=== PATIENT | female | born 1945 | race Caucasian/White ===

== ENCOUNTER → 2023-07-15 08:32 | Outpatient (REF) | payer OTHER, SELFPAY | LOC: HWRAD 08:32 | PROVIDERS: ATTENDING PHYSICIAN Specialist; FAMILY PHYSICIAN Nurse Practitioner | DX: M25.511 Pain in right shoulder (principal) | CPT/HCPCS: 73200 ==

== ENCOUNTER → 2023-07-15 08:54 | Outpatient (REF) | payer OTHER, SELFPAY | LOC: DHCBS HW 08:54 | PROVIDERS: ATTENDING PHYSICIAN Nuclear Medicine Nuclear Cardiology; FAMILY PHYSICIAN Internal Medicine | DX: I35.0 Nonrheumatic aortic (valve) stenosis (principal) | CPT/HCPCS: 93306 ==

== ENCOUNTER 2023-07-29 06:02 | Day surgery (SDC) | payer OTHER, SELFPAY ==
--- NOTE | 2023-06-25 10:49 | CM ---
Patient is scheduled for an elective R Reverse TSA on 07/29/23- she is a same day patient. Spoke with patient prior to surgery. Patient had a R Rev TSA (October 2022) and L TKR (March 2023) at . Reintroduced role of Orthopedic Navigator. Patient
reports that she lives with her in a multi story home. Currently she functions independently. She does not use any DME but has a rolling walker and cane. She has never had VN services. PCP is Alejandra Mcleod.
Discussed orthopedic program and post surgical plans. Patient will return home when directed by surgeon. Reviewed MD follow up and transition to outpatient therapy. Patient is in agreement with tentative plan and will have support from her
after surgery.
Patient has completed online education.
Plan: Orthopedic Navigator will be involved in the care of patient after surgery and will reassess discharge needs at that time.
[2023-07-07 12:11] VITALS: BMI 34.7
[2023-07-07 14:42] VITALS: BMI 34.7
[2023-07-07 14:50] LABS: Hematocrit 34.3 % (37.0-47.0); Hemoglobin 11.1 g/dL (12.0-16.0); Mean Corp Hgb Conc. 32.4 g/dL (33.0-37.0); Mean Corpuscular Hgb 32.6 pg (27.0-31.0); Mean Corpuscular Volume 100.6 fL (81.0-99.0); Mean Platelet Volume 10.8 fL (7.4-10.4); Platelet Count 214 10^3/uL (130-400); Red Blood Cell Count 3.41 10^6/uL (4.20-5.40); Red Cell Dist. Width 13.1 % (11.5-14.5); White Blood Cell Count 4.7 10^3/uL (4.8-10.8)
[2023-07-07 15:33] LABS: ALT (SGPT) 14 U/L (0-35); AST (SGOT) 25 U/L (14-36); Albumin 4.4 g/dl (3.5-5.0); Alkaline Phosphatase 79 U/L (38-126); Blood Urea Nitrogen 34 mg/dl (7-17); Calcium 9.8 mg/dl (8.4-10.2); Carbon Dioxide 26 mmol/L (22-30); Chloride 101 mmol/L (98-107); Estimated Creatinine Clearance 40 ml/min; Glucose 78 mg/dl (70-99); Potassium 4.9 mmol/L (3.5-5.1); Sodium 137 mmol/L (135-145); Total Bilirubin 0.3 mg/dl (0.2-1.3); Total Protein 6.8 g/dl (6.3-8.2); eGFR 46.62
[2023-07-08 09:31] LABS: Glycohemoglobin (HgbA1c) 5.4 % (4.0-5.6)
[2023-07-29] VITALS (9 sets, daily range): BP systolic 100–132; BP diastolic 46–63; BMI 34.7
[2023-07-29] MEDS: CELEBREX 200 MG PO (06:38)
[2023-07-29] MEDS: NORMOSOL-R 1000 IV (06:39)
[2023-07-29] MEDS: TYLENOL 1000 MG PO (06:39)
--- NOTE | 2023-07-29 11:06 | W.DS.TRANS ---
DC Summary - Fitting Room Checker
-
Discharge Instructions:
Discharge Diagnosis/Procedures R Reverse TSA Dr. Ward 07/29/23
Diet As tolerated
Driving Restrictions No driving
Instructions:
Stand-Alone Forms: SDS Total Shoulder D/C Inst.
Changes to Home Medications: Yes
Discharge Medications:
DC Medications w/original date entered in [employer]
lisinopril 10 mg tablet 10 mg PO DAILY Blood Pressure 12/30/18
mirabegron 50 mg tablet,extended release 24 hr (Myrbetriq) 50 mg PO DAILY Urinary Issue 12/30/18
multivitamin 1 ea PO DAILY Supplement 12/30/18
tolterodine 4 mg capsule,extended release 24 hr 4 mg PO DAILY Urinary Issue 12/30/18
Prevagen 10 mg PO DAILY Supplement 10/25/22
buspirone 7.5 mg tablet 7.5 mg PO DAILY Mental Health/Anxiety 10/25/22
escitalopram oxalate 20 mg tablet 20 mg PO DAILY Mental Health/Anxiety 10/25/22
rosuvastatin 20 mg tablet 20 mg PO DAILY High Cholesterol 10/25/22
Nutrafol 4 tab PO DAILY Supplement 03/07/23
biotin 10,000 mcg chewable tablet (Hair, Skin and Nails (biotin)) 10,000 mcg PO DAILY Supplement 03/07/23
acetaminophen 650 mg tablet,extended release 650 mg PO Q12H PRN Pain 07/02/23
mupirocin 2 % topical ointment 1 applic topical BID infection prevention #1 tube 07/07/23
Saccharomyces boulardii 250 mg capsule (Florastor) 250 mg PO BID #1 cap 07/29/23
aspirin 325 mg tablet 325 mg PO DAILY blood clot prevention #1 tab 07/29/23
docusate sodium 100 mg capsule (Colace) 100 mg PO BID stool softner #1 cap 07/29/23
doxycycline hyclate 100 mg capsule 100 mg PO BID infection prevention #10 caps 07/29/23
famotidine 20 mg tablet 20 mg PO HS GI prophylaxis #30 tabs 05/07/24
gabapentin 300 mg capsule 300 mg PO HS sleep/pain #10 caps 07/29/23
hydrocodone 5 mg-acetaminophen 325 mg tablet 1 tab PO Q6H PRN 1 tab moderate pain or 2 if severe #30 tabs 07/29/23
magnesium hydroxide 400 mg/5 mL oral suspension (Milk of Magnesia) 30 ml PO HS PRN Constipation #1 mL 07/29/23
prednisone 10 mg tablet 40 mg (4 x 10 mg) PO TAPER inflammation #20 tabs 07/29/23
sennosides 8.6 mg tablet (Senokot) 17.2 mg (2 x 8.6 mg) PO BID laxative #2 tabs 07/29/23
Home Medication Changes
doxycycline hyclate 100 mg capsule 100 mg PO BID infection prevention #10 caps 07/29/23�
famotidine 20 mg tablet 20 mg PO HS GI prophylaxis #30 tabs 07/29/23�
gabapentin 300 mg capsule 300 mg PO HS sleep/pain #10 caps 07/29/23�
hydrocodone 5 mg-acetaminophen 325 mg tablet 1 tab PO Q6H PRN 1 tab moderate pain or 2 if severe #30 tabs 07/29/23�
magnesium hydroxide 400 mg/5 mL oral suspension (Milk of Magnesia) 30 ml PO HS PRN Constipation #1 mL 07/29/23�
prednisone 10 mg tablet 40 mg (4 x 10 mg) PO TAPER inflammation #20 tabs 07/29/23�
Pending Results: No
[2023-07-29] MEDS: ANCEF 5 IV (11:40)
== END 2023-07-29 11:50 | disposition home or self-care (01) ==
LOC: SDS 06:02
PROVIDERS: ATTENDING PHYSICIAN Specialist; FAMILY PHYSICIAN Nurse Practitioner; OTHER PHYSICIAN Nuclear Medicine Nuclear Cardiology; OTHER PHYSICIAN Physician Assistant Medical
DX: M19.011 Primary osteoarthritis, right shoulder (principal)
CPT/HCPCS: 23472; C1776; 36415; 73020; 80053; 83036; 85027; 86850; 86900; 86901; 87070

== ENCOUNTER → 2023-11-04 13:21 | Outpatient (REF) | payer OTHER, SELFPAY | LOC: HWWDC 13:21 | PROVIDERS: ATTENDING PHYSICIAN Nurse Practitioner | DX: Z12.31 Encounter for screening mammogram for malignant neoplasm of breast (principal) | CPT/HCPCS: 77063; 77067 ==

== ENCOUNTER → 2024-09-30 08:18 | Outpatient (REF) | payer OTHER, SELFPAY | LOC: RAD 08:18 | PROVIDERS: ATTENDING PHYSICIAN Surgery; FAMILY PHYSICIAN Nurse Practitioner | DX: K43.2 Incisional hernia without obstruction or gangrene (principal) | CPT/HCPCS: 74177; Q9967 ==

== ENCOUNTER → 2024-11-05 08:47 | Outpatient (REF) | payer OTHER, SELFPAY | LOC: HWWDC 08:47 | PROVIDERS: ATTENDING PHYSICIAN Nurse Practitioner | DX: Z12.31 Encounter for screening mammogram for malignant neoplasm of breast (principal); Z87.39 Personal history of other diseases of the musculoskeletal system and connective tissue | CPT/HCPCS: 77063; 77067; 77080 ==

== ENCOUNTER 2025-01-21 12:39 | Inpatient (IN) | payer OTHER, SELFPAY ==
[2025-01-11 09:19] LABS: Hematocrit 36.0 % (37.0-47.0); Hemoglobin 11.7 g/dL (12.0-16.0); Mean Corp Hgb Conc. 32.5 g/dL (33.0-37.0); Mean Corpuscular Volume 102.6 fL (81.0-99.0); Platelet Count 224 10^3/uL (130-400); Red Cell Dist. Width 13.0 % (11.5-14.5)
[2025-01-11 10:21] LABS: Blood Urea Nitrogen 30 mg/dl (7-17); Calcium 9.4 mg/dl (8.4-10.2); Carbon Dioxide 31 mmol/L (22-30); Chloride 105 mmol/L (98-107); Glucose 88 mg/dl (70-99); Potassium 5.2 mmol/L (3.5-5.1); Sodium 138 mmol/L (135-145); eGFR 51.43
[2025-01-11 13:49] VITALS: BMI 34.4
[2025-01-21] VITALS (10 sets, daily range): BP systolic 118–141; BP diastolic 47–73; BMI 34.4
[2025-01-21] MEDS: TYLENOL 1000 MG PO (13:05)
[2025-01-21] MEDS: NORMOSOL-R/PLASMALYTE-A 1000 IV ×2 (13:21→18:04)
--- NOTE | 2025-01-21 16:15 | W.IMMPOSTOP ---
Surgical Immed Post Op Note
-
Primary Surgeon: Cher
Assisting Surgeon: EUGENIE Mejía
Pre-op Diagnosis: Ventral incisional hernia
Post-op Diagnosis: Ventral incisional hernia
Procedure Performed: Robotic ventral incisional hernia repair with mesh, THEO
Anesthesia Type: General
Specimen / Cultures: None
Estimated Blood Loss: 7 cc
Complications: None
Operative Findings:
1. Multiple midline defects along prior midline, largest measuring 6 cm, spanning 13 cm in total
2. Adhesiolysis of omental and colonic adhesions
3. Primary fascial closure with #1 PDS Stratafix, mild tension on closure
4. Ventralight ST 23 x 18 cm IPOM mesh repair
--- NOTE | 2025-01-21 18:21 | PTCARENOTE ---
Received patient from PACU via bed around 1800 in stable condition. Abdomen with abdominal binder in place. 4 lap sites to abdomen with surgical glue, no drainage. Midline incision with abd, CDI. Patient and family oriented to room. Call montes in
reach.
[2025-01-21] MEDS: DILAUDID 0.5 MG IV (19:33)
[2025-01-21] MEDS: BUSPAR 7.5 MG PO (20:30)
[2025-01-21] MEDS: TYLENOL 650 MG PO (20:31)
[2025-01-22] MEDS: TYLENOL PO (00:53)
[2025-01-22] MEDS: NORMOSOL-R/PLASMALYTE-A 1000 IV ×2 (03:54→12:36)
[2025-01-22] MEDS: TYLENOL 650 MG PO ×5 (04:35→19:53)
[2025-01-22 05:03] VITALS: BP 140/66
[2025-01-22 06:32] LABS: Hematocrit 32.2 % (37.0-47.0); Hemoglobin 10.9 g/dL (12.0-16.0); Mean Corp Hgb Conc. 33.9 g/dL (33.0-37.0); Mean Corpuscular Volume 100.0 fL (81.0-99.0); Platelet Count 174 10^3/uL (130-400); Red Cell Dist. Width 12.8 % (11.5-14.5)
[2025-01-22 06:55] LABS: Blood Urea Nitrogen 21 mg/dl (7-17); Calcium 8.2 mg/dl (8.4-10.2); Carbon Dioxide 28 mmol/L (22-30); Chloride 98 mmol/L (98-107); Estimated Creatinine Clearance 49 ml/min; Glucose 117 mg/dl (70-99); Potassium 5.1 mmol/L (3.5-5.1); Sodium 131 mmol/L (135-145); eGFR 57.66
[2025-01-22] MEDS: DETROL LA 4 MG PO (08:11)
[2025-01-22] MEDS: CRESTOR 20 MG PO (08:11)
[2025-01-22] MEDS: LEXAPRO 20 MG PO (08:11)
[2025-01-22] MEDS: BUSPAR 7.5 MG PO ×2 (08:12→19:53)
[2025-01-22] MEDS: PROTONIX IV 40 MG IV (08:12)
[2025-01-22] MEDS: NSS (PRESERVATIVE FREE) 10 ML IV (08:12)
[2025-01-22 08:46] VITALS: BP 124/62
[2025-01-22] MEDS: DILAUDID 0.5 MG IV (09:51)
[2025-01-22] MEDS: MIRALAX 17 GRAMS PO (09:52)
--- NOTE | 2025-01-22 10:50 | W.PN.GS2 ---
Today's Communication / Plan
-
-- Regular diet
-- IVF
-- Miralax
-- Home meds
-- OOB/ambulate
Assessment / Plan
-
Patient is a 79 yo F POD#1 s/p robotic ventral incisional hernia repair with mesh
AVSS
Labs notable for normal WBC, stable Hb (chronic anemia), hyponatremia, normal renal function
Expected postoperative issues with pain. Monitor dietary tolerance for possible ileus given size of mesh repair.
-- Regular diet
-- Pain control: Tylenol, Toradol, Oxycodone
-- IVF
-- Miralax
-- Home meds
-- OOB/ambulate
-- DVT: Lovenox
-- GI: PPI
Subjective Data
-
Date of Service: January 22, 2025
Ports abdominal soreness. Minimal ambulation. No nausea or vomiting. No flatus or BM. Afebrile.
Objective Data
-
Intake and Output
01/21/25 01/22/25 01/23/25
06:59 06:59 05:59
Intake Total 1300 / 1300
Output Total 1065 / 1065
Balance 235 / 235
Intake:
IV fluids (Total) 1300 / 1300
Normosol 100 / 100
Output:
Urine, Baker 1065 / 1065
Vital Signs
Temp Pulse Resp BP Pulse Ox
98 F 70 16 124/62 95
01/22/25 08:46 01/22/25 08:46 01/22/25 08:46 01/22/25 08:46 01/22/25 08:46
Lab Results
01/22/25 06:00
01/22/25 06:00
Calcium 8.2 mg/dl (8.4-10.2) L 01/22/25 06:00
Physical Exam
-
Gen: NAD
Abd: soft, tender to palpation, obese, mild distension, binder in place, incisions c/d/i
Patient has a baker catheter: No
Patient has a central line: No
[2025-01-22] MEDS: TORADOL 15 MG IV (12:35)
--- NOTE | 2025-01-22 14:32 | CM ---
I.A: Completed By DARYL Porras.
Patient lives in a 2 Story House with 2 steps to enter, Bathroom on both levels, uses No DME, No VN/PT, and only Outpatient at one time.
PCP: Dr. Katiana Ferris
Pharmacy: [facility]
Patient will have transport when ready. PLAN: Home vs. Home PT.
[2025-01-22] MEDS: ROXICODONE 5 MG PO ×2 (14:45→19:12)
[2025-01-22 15:55] VITALS: BP 107/77
[2025-01-22] MEDS: LOVENOX 40 MG SC (17:03)
[2025-01-22 23:32] VITALS: BP 112/74
[2025-01-23] MEDS: TYLENOL PO (00:35)
[2025-01-23] MEDS: NORMOSOL-R/PLASMALYTE-A IV (00:35)
[2025-01-23] MEDS: TYLENOL 650 MG PO ×5 (03:33→20:58)
[2025-01-23 07:40] VITALS: BP 136/55
[2025-01-23] MEDS: LEXAPRO 20 MG PO (08:49)
[2025-01-23] MEDS: CRESTOR 20 MG PO (08:49)
[2025-01-23] MEDS: MILK OF MAGNESIA 30 ML PO (08:49)
[2025-01-23] MEDS: DETROL LA 4 MG PO (08:49)
[2025-01-23] MEDS: BUSPAR 7.5 MG PO ×2 (08:49→20:58)
[2025-01-23] MEDS: MIRALAX 17 GRAMS PO (08:50)
[2025-01-23] MEDS: PROTONIX IV 40 MG IV (08:50)
[2025-01-23] MEDS: NSS (PRESERVATIVE FREE) 10 ML IV (08:50)
--- NOTE | 2025-01-23 09:20 | W.PN.GS2 ---
Today's Communication / Plan
-
-- Regular diet
-- DC IVF
-- Miralax, possible milk of mag this afternoon
-- Dispo pending
Assessment / Plan
-
Patient is a 79 yo F POD#2 s/p robotic ventral incisional hernia repair with mesh
AVSS
No repeat labs
Expected postoperative issues with pain. Monitor dietary tolerance for possible ileus given size of mesh repair; passing flatus bu mild nausea. Continue Miralax, add milk of mag if needed, should have BM prior to DC.
-- Regular diet
-- Pain control: Tylenol, Toradol, Oxycodone
-- DC IVF
-- Miralax, possible milk of mag this afternoon
-- Home meds
-- OOB/ambulate
-- DVT: Lovenox
-- GI: PPI
-- Dispo pending
Subjective Data
-
Date of Service: January 23, 2025
Ports abdominal soreness, overall well-controlled, worse with movement or coughing. Mild nausea, no episodes of vomiting. Passing flatus, no BM. Ambulating. Voiding.
Objective Data
-
Intake and Output
01/22/25 01/23/25 01/24/25
06:59 05:59 06:59
Intake Total 1300 / 1300 1200 / 1200
Output Total 1064 / 1065 1400 / 1400
Balance 235 / 235 -200 / -200
Intake:
IV fluids (Total) 1300 / 1300 1200 / 1200
Normosol 100 / 100
Output:
Urine, Baker 1065 / 1065
Urine, Voided 1400 / 1400
Other:
How many times incontinent 2
SMALL amount urine
Number of approximated LARGE 2
amounts of urine
Vital Signs
Temp Pulse Resp BP Pulse Ox
98.5 F 71 18 136/55 100
01/23/25 07:40 01/23/25 07:40 01/23/25 07:40 01/23/25 07:40 01/23/25 07:40
Lab Results
01/22/25 06:00
01/22/25 06:00
Calcium 8.2 mg/dl (8.4-10.2) L 01/22/25 06:00
Physical Exam
-
Gen: NAD
Abd: soft, obese, mild tenderness, ND, non-peritoneal, incisions c/d/i - no erythema, ecchymosis or drainage
Patient has a baker catheter: No
Patient has a central line: No
[2025-01-23] MEDS: ROXICODONE 5 MG PO (12:34)
[2025-01-23 15:25] VITALS: BP 131/74
[2025-01-23] MEDS: LOVENOX 40 MG SC (17:37)
[2025-01-23] MEDS: DILAUDID 0.5 MG IV (23:15)
[2025-01-23 23:20] VITALS: BP 131/55
[2025-01-24] MEDS: TYLENOL PO ×2 (00:16→04:09)
[2025-01-24 07:55] VITALS: BP 141/56
--- NOTE | 2025-01-24 09:09 | W.PN.GS2 ---
Today's Communication / Plan
-
bowel regimen
dispo planning
Assessment / Plan
-
Patient is a 79 yo F POD#3 s/p robotic ventral incisional hernia repair with mesh
AVSS
Expected postoperative issues with pain, improving. Monitor dietary tolerance for possible ileus given size of mesh repair; passing flatus. Continue Miralax, add Dulcolax supp, should have BM prior to DC.
-- Regular diet
-- Pain control: Tylenol, Toradol, Oxycodone
-- DC IVF
-- Miralax, Dulcolax supp today
-- Home meds
-- ABD binder
-- OOB/ambulate
-- DVT: Lovenox
-- GI: PPI
-- Dispo pending
Subjective Data
-
Date of Service: January 24, 2025
Pt seen and examined at bedside with Dr. Thakkar. No futher nausea, tolerating diet. Passing some flatus but no BM as of yet. Pain improving today but still quite sore.
Objective Data
-
Intake and Output
01/23/25 01/24/25 01/25/25
05:59 06:59 06:59
Intake Total 1200 / 1200 1620 / 1620
Output Total 1400 / 1400
Balance -200 / -200 1620 / 1620
Intake:
Oral fluids 1620 / 1620
IV fluids (Total) 1200 / 1200
Output:
Urine, Voided 1400 / 1400
Other:
How many times incontinent 2
SMALL amount urine
Number of approximated MODERATE 1
amounts of urine
Number of approximated LARGE 2 1
amounts of urine
Vital Signs
Temp Pulse Resp BP Pulse Ox
98.0 F 70 17 131/55 90
01/23/25 23:20 01/23/25 23:20 01/23/25 23:20 01/23/25 23:20 01/23/25 23:20
Lab Results
01/22/25 06:00
01/22/25 06:00
Calcium 8.2 mg/dl (8.4-10.2) L 01/22/25 06:00
Physical Exam
-
Gen: NAD
Abd: soft, obese, mild tenderness, ND, non-peritoneal, incisions c/d/i - no erythema, ecchymosis or drainage
Patient has a baker catheter: No
Patient has a central line: No
[2025-01-24] MEDS: MIRALAX 17 GRAMS PO (09:30)
[2025-01-24] MEDS: TYLENOL 650 MG PO (09:30)
[2025-01-24] MEDS: BUSPAR 7.5 MG PO (09:31)
[2025-01-24] MEDS: LEXAPRO 20 MG PO (09:31)
[2025-01-24] MEDS: DETROL LA 4 MG PO (09:32)
[2025-01-24] MEDS: CRESTOR 20 MG PO (09:32)
[2025-01-24] MEDS: PROTONIX IV 40 MG IV (09:32)
[2025-01-24] MEDS: DULCOLAX 10 MG RECTAL (09:32)
[2025-01-24] MEDS: NSS (PRESERVATIVE FREE) 10 ML IV (09:33)
[2025-01-24] MEDS: ROXICODONE 5 MG PO (09:36)
--- NOTE | 2025-01-24 11:11 | W.DS.TRANS ---
Addendum entered and electronically signed by AMBER Carter 01/24/25 12:37:
dictated #[id number]
Original Note:
DC Summary - Personnel Adviser
-
Discharge Instructions:
Discharge Diagnosis/Procedures Ventral incisional hernia
Diet Regular
Activity No strenuous activity
Additional Activity Do not lift over 20lbs for the next 4-6 weeks
Driving Restrictions Wait until comfortable twisting/off ncarcotics
Bathing Restrictions OK to Shower
Wound Care Ok to shower and wash incisions gently with soap
and water. Allow the glue to flake off on its
own over the next 2-3 weeks.
Wear the abdominal binder for the next 2 weeks
for support. Ok to remove while in bed for
comfort.
Instructions:
Stand-Alone Forms:
Changes to Home Medications: No
Discharge Medications:
DC Medications w/original date entered in [employer]
mirabegron 50 mg tablet,extended release 24 hr (Myrbetriq) 50 mg PO DAILY Urinary Issue 12/30/18
multivitamin 1 ea PO DAILY Supplement 12/30/18
tolterodine 4 mg capsule,extended release 24 hr 4 mg PO DAILY Urinary Issue 12/30/18
buspirone 7.5 mg tablet 7.5 mg PO BID Mental Health/Anxiety 10/25/22
escitalopram oxalate 20 mg tablet 20 mg PO DAILY Mental Health/Anxiety 10/25/22
rosuvastatin 20 mg tablet 20 mg PO DAILY High Cholesterol 10/25/22
ferrous sulfate 325 mg (65 mg iron) tablet 325 mg PO MOWEFR Supplement 01/14/25
acetaminophen 325 mg tablet 650 mg (2 x 325 mg) PO Q4HPRN PRN mild pain #1 tab 01/24/25
ibuprofen 200 mg tablet 400 - 600 mg (2 - 3 x 200 mg) PO Q6HPRN PRN moderate pain #1 tab 01/24/25
oxycodone 5 mg tablet 5 mg PO Q4HPRN PRN breakthrough/severe pain #15 tabs 01/24/25
polyethylene glycol 3350 17 gram oral powder packet 17 g PO DAILYPRN PRN constipation #1 packet 01/24/25
Home Medication Changes
Pending Results: No
--- NOTE | 2025-01-24 11:13 | CM ---
CM reviewed chart and noted dc order
Bedside meeting with pt and spouse
No dc needs noted
IMM verbally reviewed- copy provided
Discharge Disposition- home no needs, spouse transport
[2025-01-24 11:20] VITALS: BP 141/56
== END 2025-01-24 12:25 | disposition home or self-care (01) | DRG 355 ==
LOC: 2 SOUTH 12:39
PROVIDERS: ADMITTING PHYSICIAN Surgery; FAMILY PHYSICIAN Internal Medicine
PROC: 8E0W4CZ Robotic Assisted Procedure of Trunk Region, Percutaneous Endoscopic Approach (ICD-10-PCS; 2025-01-21)
PROC: 0WUF4JZ Supplement Abdominal Wall with Synthetic Substitute, Percutaneous Endoscopic Approach (ICD-10-PCS; 2025-01-21)
DX: K43.2 Incisional hernia without obstruction or gangrene (principal); Z87.19 Personal history of other diseases of the digestive system; K66.0 Peritoneal adhesions (postprocedural) (postinfection); E66.01 Morbid (severe) obesity due to excess calories; Z68.34 Body mass index [BMI] 34.0-34.9, adult; Z90.49 Acquired absence of other specified parts of digestive tract; Z90.710 Acquired absence of both cervix and uterus
CPT/HCPCS: 80048; 85027; 93005; C1713